=== PATIENT | male | born 1950 | race Caucasian/White ===

== ENCOUNTER → 2023-08-12 09:24 | Outpatient (REF) | payer MEDICARE, OTHER, SELFPAY | LOC: RAD 09:24 | PROVIDERS: ATTENDING PHYSICIAN Nurse Practitioner | DX: R07.81 Pleurodynia (principal) | CPT/HCPCS: 71101 ==

== ENCOUNTER → 2024-09-21 07:45 | Outpatient (REF) | payer MEDICARE, OTHER, SELFPAY | LOC: RAD 07:45 | PROVIDERS: ATTENDING PHYSICIAN Internal Medicine Hematology & Oncology; FAMILY PHYSICIAN Internal Medicine | DX: D69.6 Thrombocytopenia, unspecified (principal) | CPT/HCPCS: 76700 ==

== ENCOUNTER → 2024-12-22 06:51 | Outpatient (REF) | payer MEDICARE, OTHER, SELFPAY ==
[2024-12-22] VITALS (7 sets, daily range): BP systolic 55–167; BP diastolic 67–74
[2024-12-22] MEDS: ATIVAN 0.5 MG PO (07:30)
[2024-12-22 07:38] LABS: INR 1.08; PT 14.3 Sec (11.4-14.6)
[2024-12-22 07:41] LABS: Hematocrit 38.3 % (39.0-52.0); Hemoglobin 12.5 g/dL (13.0-18.0); Mean Corp Hgb Conc. 32.6 g/dL (33.0-37.0); Mean Corpuscular Volume 91.4 fL (80.0-94.0); Nucleated Red Blood Cells % 0 % (-); Red Cell Dist. Width 15.4 % (11.5-14.5)
[2024-12-22 08:38] LABS: Platelet Count 68 10^3/uL (130-400)
== END ==
LOC: RADI 06:51
PROVIDERS: ATTENDING PHYSICIAN Internal Medicine Hematology & Oncology; FAMILY PHYSICIAN Internal Medicine
DX: D69.6 Thrombocytopenia, unspecified (principal); D64.9 Anemia, unspecified
CPT/HCPCS: 36415; 38222; 77012; 85025; 85610; 88305; 88311; 88312; 88313